=== PATIENT | female | born 1995 | race African-American/Black ===

== ENCOUNTER 2016-12-24 13:56 | Emergency (ER) | payer MEDICAID ==
[~2016-12-24] VITALS: Ht 160 cm; Wt 100.0 kg
[2016-12-24 13:57] VITALS: BP 132/75; PULSE 108; RESP 20; TEMP 98.6; O2SAT 99
--- NOTE | 2016-12-24 16:09 | PD ---
HPI . Depression Chief Complaint: Depression Time Seen by Provider: 15:51 Travel History International Travel<30 days: No Contact w/Intl Traveler<30days: No Traveled to known affect area: No History of Present Illness HPI This patient presents stating that she was sent here by her [facility] counselor for a psychiatric evaluation. The patient reports that she has been suffering from depression for quite some time now. She states that she is not homicidal or suicidal. She states that she just needs to talk to someone [facility] Past Medical History GERD: Yes : 0 Social History Alcohol Use: No Tobacco Use: No Substance Use: No Allergies-Medications (Allergen,Severity, Reaction): Coded Allergies: No Known Allergies (Unverified , 03/11/15) Reported Meds & Prescriptions Reported Meds & Active Scripts Active Review of Systems Except as stated in HPI: all other systems reviewed are Neg Psychiatric: Positive: Depression, No: Suicidal Ideations, Homicidal Ideation Physical Exam Narrative GENERAL: Patient is awake and alert and talking on her cell phone in no acute distress. SKIN: Warm and dry with no rash or lesions. HEAD: Normocephalic/atraumatic. EYES: Pupils are equal. Extraocular movements are intact. NECK: Supple. CARDIOVASCULAR: Regular rate and rhythm. RESPIRATORY: Nonlabored respirations. MUSCULOSKELETAL: Atraumatic. NEUROLOGICAL: Nonfocal. PSYCHIATRIC: Appropriate mood and affect. Denies SI/H I. Data Data Last Documented VS Vital Signs Date Time Temp Pulse Resp B/P (MAP) Pulse Ox O2 Delivery O2 Flow Rate FiO2 12/24/16 13:57 98.6 108 20 132/75 (94) 99 Room Air MDM Medical Decision Making Medical Screen Exam Complete: Yes Emergency Medical Condition: Yes Differential Diagnosis Differential diagnosis of depression includes but is not limited to episodic depression, major depression, bipolar disorder, PTSD Narrative Course This patient presents stating that she is depressed but is not suicidal or homicidal. She is seeing a counselor in [facility]. She states that the counselor told her to come to the emergency department to speak with the psychiatrist. I have explained the process to her. She prefers to be evaluated as an outpatient. We will give her psychiatric resources and discharge her to home. Diagnosis Primary Impression: Depression Qualified Codes: F32.9 - Major depressive disorder, single episode, unspecified Patient Instructions: Depression (DC), General Instructions Disposition: 01 DISCHARGE HOME Condition: Stable Zahida Antonio MD Dec 24, 2016 16:09
== END 2016-12-24 16:20 | disposition home or self-care (01) ==
LOC: NEPD 13:56
DX: F32.9 Major depressive disorder, single episode, unspecified (principal)
CPT/HCPCS: 99281